=== PATIENT | male | born 1980 | race Caucasian/White ===

== ENCOUNTER 2019-11-17 02:05 | Emergency (ER) | payer MEDICAID ==
[~2019-11-17] VITALS: Ht 188 cm; Wt 122.9 kg
[2019-11-17 02:20] VITALS: BP 158/93
[2019-11-17] MEDS ORDERED: diphenhdrAMINE HCL 50 MG/1 ML VL IM ONE (02:30)
== END 2019-11-17 03:34 | disposition left against medical advice (07) ==
LOC: ER 02:05
DX: T78.40XA Allergy, unspecified, initial encounter (principal); Z53.21 Procedure and treatment not carried out due to patient leaving prior to being seen by health care provider; X58.XXXA Exposure to other specified factors, initial encounter

== ENCOUNTER 2021-09-08 10:32 | Emergency (ER) | payer MEDICAID ==
[~2021-09-08] VITALS: Ht 188 cm; Wt 117.0 kg
[2021-09-08] MEDS ORDERED: methylPREDNISolone SOD SUCC 125 MG/2 ML VL IM ONE (11:30)
[2021-09-08] MEDS ORDERED: EPINEPHrine HCL 1 MG/1 ML AMP SC ONE (11:30)
[2021-09-08 11:35] VITALS: BP 132/96
[2021-09-08] MEDS ORDERED: METH4PAK PO (11:38)
[2021-09-08] MEDS ORDERED: TRIA0.02 TOP (11:38)
== END 2021-09-08 11:46 | disposition home or self-care (01) ==
LOC: ER 10:32
DX: S00.261A Insect bite (nonvenomous) of right eyelid and periocular area, initial encounter (principal); L08.9 Local infection of the skin and subcutaneous tissue, unspecified; T78.3XXA Angioneurotic edema, initial encounter; Z79.899 Other long term (current) drug therapy; Z88.0 Allergy status to penicillin; W57.XXXA Bitten or stung by nonvenomous insect and other nonvenomous arthropods, initial encounter; Y93.89 Activity, other specified; Y92.89 Other specified places as the place of occurrence of the external cause; Y99.8 Other external cause status
CPT/HCPCS: 96372; 99284; J0171; J2930

== ENCOUNTER 2023-05-01 06:03 | Emergency (ER) | payer MEDICAID ==
[~2023-05-01] VITALS: Ht 182.9 cm; Wt 109.0 kg
[~2023-05-01 06:03] MED LIST: METH4PAK PO; TRIA0.02 TOP
[2023-05-01 06:18] VITALS: BP 151/92; PULSE 65; RESP 16; TEMP 98.2; O2SAT 97
[2023-05-01] MEDS ORDERED: DexAMETHasone SOD PHOS 10MG/1ML VIAL INJ IM ONE (06:45)
[2023-05-01 07:21] LABS: Rapid Strep A Screen-Throat Negative
[2023-05-01] MEDS ORDERED: LORA10CA PO (07:32)
== END 2023-05-01 07:37 | disposition home or self-care (01) ==
LOC: ER 06:03
DX: J02.9 Acute pharyngitis, unspecified (principal); M54.2 Cervicalgia; F12.10 Cannabis abuse, uncomplicated; Z88.0 Allergy status to penicillin
CPT/HCPCS: 70490; 71046; 87070; 87880; 96372; 99285; J1100

== ENCOUNTER 2023-07-25 18:37 | Emergency (ER) | payer MEDICAID ==
[~2023-07-25] VITALS: Ht 182.9 cm; Wt 110.5 kg
[~2023-07-25 18:37] MED LIST changes: +LORA10CA PO
[2023-07-25 20:50] VITALS: BP 124/84; TEMP 98.7
[2023-07-25 20:53] VITALS: PULSE 64; RESP 20; O2SAT 97
== END 2023-07-25 20:51 | disposition home or self-care (01) ==
LOC: ER 18:37
DX: I10 Essential (primary) hypertension (principal); F12.10 Cannabis abuse, uncomplicated; Z88.0 Allergy status to penicillin

== ENCOUNTER 2023-08-13 13:12 | Emergency (ER) | payer MEDICAID ==
[~2023-08-13] VITALS: Ht 182.9 cm; Wt 117.5 kg
[2023-08-13 13:38] VITALS: BP 149/93; PULSE 67; RESP 18; O2SAT 96
== END 2023-08-13 16:28 | disposition left against medical advice (07) ==
LOC: ER 13:12
DX: H57.11 Ocular pain, right eye (principal); Z53.21 Procedure and treatment not carried out due to patient leaving prior to being seen by health care provider

== ENCOUNTER 2024-01-26 14:50 | Emergency (ER) | payer MEDICAID ==
[~2024-01-26] VITALS: Ht 182.9 cm; Wt 121.8 kg
[2024-01-26 15:10] VITALS: BP 132/89; PULSE 70; RESP 18; O2SAT 97
[2024-01-26] MEDS: methylPREDNISolone SOD SUCC 125 MG/2 ML VL IV ONE (15:42)
[2024-01-26] MEDS: FAMOTIDINE (10MG/ML) 2ML VL IV ONE (15:42)
[2024-01-26] MEDS: diphenhdrAMINE HCL 50 MG/1 ML VL IV ONE (15:42)
[2024-01-26] MEDS: SODIUM CHLORIDE 0.9% 1,000 ML IV ONE (15:43)
[2024-01-26] MEDS ORDERED: TRANEXAMIC ACID 1,000 MG in SODIUM CHL 0.9% 100 ML IV ONE (18:30)
== END 2024-01-26 19:13 | disposition left against medical advice (07) ==
LOC: ER 14:50
DX: R22.0 Localized swelling, mass and lump, head (principal); I10 Essential (primary) hypertension; F15.90 Other stimulant use, unspecified, uncomplicated; Z98.890 Other specified postprocedural states; Z88.0 Allergy status to penicillin; Z79.899 Other long term (current) drug therapy
CPT/HCPCS: 96361; 96374; 96375; 99284; J1200; J2919; J3490; J7030